=== PATIENT | female | born 1990 | race Caucasian/White ===

== ENCOUNTER → 2016-12-28 | Outpatient (CLI) | payer OTHER ==
[~2016-12-28] MED LIST: BUSPAR 5MG TABLE5 MG PO; COLACE 100MG C100 MG PO
[2016-12-28 11:56] LABS: HEMOGLOBIN 12.5 gm/dl (12.3-15.3); RED BLOOD COUNT 4.21 M/UL (4.00-5.10); WHITE BLOOD COUNT 7.9 K/UL (4.5-11.0)
== END ==
LOC: GENOP 11:03
PROVIDERS: Obstetrics & Gynecology
DX: Z01.812 Encounter for preprocedural laboratory examination (principal); O34.219 Maternal care for unspecified type scar from previous cesarean delivery; Z3A.00 Weeks of gestation of pregnancy not specified
CPT/HCPCS: 36415; 81001; 85025

== ENCOUNTER 2016-12-31 05:10 | Inpatient (IN) | payer OTHER ==
[~2016-12-31] VITALS: Ht 157.5 cm; Wt 82.1 kg
[2017-01-01 02:46] LABS: HEMOGLOBIN 11.2 gm/dl (12.3-15.3)
[2017-01-02] MEDS ORDERED: BUSPAR 5MG TABLE5 MG PO (11:43)
[2017-01-02] MEDS ORDERED: COLACE 100MG C100 MG PO (14:21)
== END 2017-01-02 15:21 | disposition home or self-care (01) | DRG 766 ==
LOC: OB 05:10
PROVIDERS: ADMIT Obstetrics & Gynecology
PROC: 3E0R3CZ (ICD-10-PCS; 2016-12-31)
PROC: 10D00Z1 Extraction of Products of Conception, Low, Open Approach (ICD-10-PCS; principal; 2016-12-31 07:18)
PROC: 3E0234Z Introduction of Serum, Toxoid and Vaccine into Muscle, Percutaneous Approach (ICD-10-PCS; 2017-01-01)
DX: O34.211 Maternal care for low transverse scar from previous cesarean delivery (principal); N85.8 Other specified noninflammatory disorders of uterus; O36.63X0 Maternal care for excessive fetal growth, third trimester, not applicable or unspecified; Z3A.39 39 weeks gestation of pregnancy; Z37.0 Single live birth; O99.513 Diseases of the respiratory system complicating pregnancy, third trimester; J45.909 Unspecified asthma, uncomplicated; O99.343 Other mental disorders complicating pregnancy, third trimester; F41.1 Generalized anxiety disorder; F32.9 Major depressive disorder, single episode, unspecified; O99.613 Diseases of the digestive system complicating pregnancy, third trimester; K21.9 Gastro-esophageal reflux disease without esophagitis; O99.214 Obesity complicating childbirth; E66.9 Obesity, unspecified; Z68.32 Body mass index [BMI] 32.0-32.9, adult; Z23 Encounter for immunization; Z87.440 Personal history of urinary (tract) infections; Z79.899 Other long term (current) drug therapy; Z83.3 Family history of diabetes mellitus; Z82.0 Family history of epilepsy and other diseases of the nervous system; Z81.4 Family history of other substance abuse and dependence; Z80.9 Family history of malignant neoplasm, unspecified
CPT/HCPCS: 36415; 81001; 82800; 85014; 85018; 85025; 90715; C9113; J0690; J1885; J2274; J2405; J2550; J2590; J2765; J7050; J7120

== ENCOUNTER 2021-10-30 03:38 | Emergency (ER) | payer OTHER ==
[~2021-10-30 03:38] MED LIST changes: +BENADRYL 1% CRE15 GM TP; +BUSPAR 10MG10 MG PO; +COLACE100 MG PO; +IBUPROFEN600 MG PO; +LORTAB 5-325 M1 EACH PO; +PROZAC20 MG PO; +UNISOM50 MG PO; +ZOFRAN8 MG PO
[2021-10-30 04:07] LABS: HEMOGLOBIN 14.2 gm/dl (12.3-15.3); RED BLOOD COUNT 4.72 M/UL (4.00-5.10); WHITE BLOOD COUNT 11.5 K/UL (4.5-11.0)
[2021-10-30 04:32] LABS: BUN/CREATININE RATIO 17 (0-10)
== END 2021-10-30 07:53 | disposition home or self-care (01) ==
LOC: ER1 03:38
PROVIDERS: Family Medicine
DX: R10.9 Unspecified abdominal pain (principal); R11.0 Nausea
CPT/HCPCS: 80053; 81001; 83690; 84703; 85025; 96374; 99284; Q9967

== ENCOUNTER → 2022-04-25 | Outpatient (CLI) | payer OTHER | LOC: EXRD 04-24 14:00 → HEART 5 13:30 | DX: M79.604 Pain in right leg (principal) | CPT/HCPCS: 73630; 93926; 93971 ==

== ENCOUNTER → 2022-05-18 | Outpatient (CLI) | payer OTHER | LOC: RAD 09:27 → EDSTATUS 10:23 | DX: R22.42 Localized swelling, mass and lump, left lower limb (principal) | CPT/HCPCS: 73723; A9577 ==